=== PATIENT | female | born 1940 | race Caucasian/White ===

== ENCOUNTER 2016-02-20 21:35 | Emergency (ER) | payer MEDICARE, MEDICAID ==
[2016-02-20] MEDS ORDERED: DILAUDID 1 MG/ML AMP ONE ×2 (23:43→23:53)
[2016-02-20] MEDS ORDERED: METHYLPRED SOD SUCC 125 MG/2 ML VIAL ONE (23:44)
[2016-02-21] MEDS ORDERED: ONDANSETRON ODT 4 MG TAB ONE (00:05)
== END 2016-02-21 00:50 | disposition home or self-care (01) ==
LOC: ER 21:35
CPT/HCPCS: 72131 ×2; 96374 ×2; 96375 ×2; 99284; J1170; J2930